=== PATIENT | female | born 1990 | race Two or more races ===

== ENCOUNTER 2018-01-11 12:54 | Emergency (ER) | payer BC, OTHER ==
[~2018-01-11] VITALS: Ht 162.6 cm; Wt 49.9 kg
[2018-01-11 13:05] VITALS: BP 117/72
[2018-01-11] MEDS ORDERED: traMADol HCL 50 MG TAB PO ONE (14:30)
== END 2018-01-11 14:38 | disposition home or self-care (01) ==
LOC: ER 12:54
DX: S30.1XXA Contusion of abdominal wall, initial encounter (principal); S50.01XA Contusion of right elbow, initial encounter; S80.11XA Contusion of right lower leg, initial encounter; F17.210 Nicotine dependence, cigarettes, uncomplicated; Y08.89XA Assault by other specified means, initial encounter; Y93.89 Activity, other specified; Y99.8 Other external cause status; Y92.89 Other specified places as the place of occurrence of the external cause
CPT/HCPCS: 74176

== ENCOUNTER 2022-02-02 16:35 | Emergency (ER) | payer BC, OTHER ==
[~2022-02-02] VITALS: Ht 160 cm; Wt 70.0 kg
[2022-02-02 17:32] VITALS: BP 11/76
[2022-02-03 08:58] LABS: Hepatitis B Surface Antibody Negative (Negative)
== END 2022-02-03 00:19 | disposition left against medical advice (07) ==
LOC: ER 16:35
DX: T14.8XXA Other injury of unspecified body region, initial encounter (principal); Z53.21 Procedure and treatment not carried out due to patient leaving prior to being seen by health care provider; W46.1XXA Contact with contaminated hypodermic needle, initial encounter; Y93.89 Activity, other specified; Y92.89 Other specified places as the place of occurrence of the external cause; Y99.8 Other external cause status
CPT/HCPCS: 36415; 86703; 86706; 86803; 87340

== ENCOUNTER → 2022-03-30 | Outpatient (CLI) | payer OTHER ==
[2022-03-31 09:14] LABS: Hepatitis B Surface Antibody Positive (Negative)
== END | disposition home or self-care (01) ==
LOC: LAB 07:39
PROVIDERS: ATTEND Nurse Practitioner
DX: Z77.21 Contact with and (suspected) exposure to potentially hazardous body fluids (principal); S61.233A Puncture wound without foreign body of left middle finger without damage to nail, initial encounter; X58.XXXA Exposure to other specified factors, initial encounter; Y93.89 Activity, other specified; Y92.89 Other specified places as the place of occurrence of the external cause; Y99.8 Other external cause status; W46.1XXA Contact with contaminated hypodermic needle, initial encounter
CPT/HCPCS: 36415; 86703; 86706; 86803; 87340

== ENCOUNTER → 2022-05-30 | Outpatient (CLI) | payer OTHER ==
[2022-05-30 16:06] LABS: Hepatitis B Surface Antibody Positive (Negative)
== END | disposition home or self-care (01) ==
LOC: LAB 14:17
PROVIDERS: ATTEND Nurse Practitioner
DX: Z77.21 Contact with and (suspected) exposure to potentially hazardous body fluids (principal)
CPT/HCPCS: 36415; 86703; 86706; 86803; 87340

== ENCOUNTER → 2023-06-23 | Outpatient (CLI) | payer BC ==
[2023-06-24 08:06] LABS: RPR Non Reactive (Non Reactive)
[2023-06-26 09:49] LABS: Hepatitis B Core Total AB Negative (Negative)
[2023-06-26 09:59] LABS: Hepatitis A Total Antibody Negative (Negative); Hepatitis B Surface Antibody Positive (Negative); Hepatitis B Surface Antigen Negative (Negative); Hepatitis C Antibody Negative (Negative)
== END | disposition home or self-care (01) ==
LOC: LAB 11:20
PROVIDERS: ATTEND Obstetrics & Gynecology
DX: Z20.2 Contact with and (suspected) exposure to infections with a predominantly sexual mode of transmission (principal)
CPT/HCPCS: 36415; 86592; 86703; 86704; 86706; 86708; 86803; 87340